=== PATIENT | male | born 1945 | race Caucasian/White ===

== ENCOUNTER 2022-09-29 06:09 | Day surgery (SDC) | payer MEDICARE ==
[2022-09-27 16:23] LABS: BASOPHILS % (AUTO) 0.3 % (0-1); EOSINOPHILS # (AUTO) 0.1 X10'3 (0-0.9); EOSINOPHILS % (AUTO) 2.1 % (0-6); LYMPHOCYTES # (AUTO) 1.5 X10'3 (1.1-4.8); LYMPHOCYTES % (AUTO) 22.7 % (21-51); MEAN CORPUSCULAR HEMOGLOBIN 32.3 PG (27.0-31.0); MEAN CORPUSCULAR HGB CONC 34.1 g/dL (33.0-36.5); MEAN CORPUSCULAR VOLUME 94.6 FL (78-98); MEAN PLATELET VOLUME 9.6 FL (7.4-10.4); MONOCYTES # (AUTO) 0.6 X10'3 (0-0.9); MONOCYTES % (AUTO) 9.1 % (2-12); NEUTROPHILS # (AUTO) 4.4 X10'3 (1.8-7.7); NEUTROPHILS % (AUTO) 65.8 % (42-75); PRE OP HEMOGLOBIN 13.3 g/dL (14.0-17.9); PRE OP PLATELET COUNT 143 X10'3 (140-440); RED BLOOD COUNT 4.13 X10'6 (4.70-6.10); RED CELL DISTRIBUTION WIDTH 13.1 % (11.5-14.5)
[2022-09-27 16:50] LABS: ALBUMIN 3.8 G/DL (3.4-5.0); ALBUMIN/GLOBULIN RATIO 1.3 (1.1-1.5); ALKALINE PHOSPHATASE 88 IU/L (46-116); BLOOD UREA NITROGEN 10 MG/DL (7-18); BUN/CREATININE RATIO 14.3 (5.4-32.0); CHLORIDE 105 MMOL/L (99-107); PRE OP ALT 37 U/L (30-65); PRE OP ANION GAP 8 (8-16); PRE OP AST 25 U/L (10-37); PRE OP BILIRUB, TOTAL 0.5 MG/DL (0.0-1.0); PRE OP GLUCOSE 100 MG/DL (70-104); PRE OP SODIUM 140 MMOL/L (135-145); TOTAL CARBON DIOXIDE 27.5 MMOL/L (24-32); TOTAL PROTEIN 6.7 G/DL (6.4-8.2); eGFR > 90 ML/MIN
[~2022-09-29] VITALS: Ht 170.2 cm; Wt 80.7 kg
[2022-09-29] VITALS (11 sets, daily range): BP systolic 124–161; BP diastolic 58–97
[~2022-09-29 06:09] MED LIST: ASCO-134 PO; GLUCOS; PRESERVISION; SAW PALMETTO; VITAMIN D; ZINC; [UNRECOGNIZED DRUG - OTHER]; cefazolin 2gm/D5W 100mL 100 ML IV ONE; famotidine 20mg tablet PO ONE; ringers solution, lacted 1,000 ML IV SCH
[2022-09-29] MEDS ORDERED: LIDOcaine 1% 30ml preserv. free vial ONE (06:43)
[2022-09-29] MEDS ORDERED: BUPIVAcaine/PF 2.5 mg/ml (0.25%) 30ml vial ONE (06:43)
[2022-09-29] MEDS ORDERED: sevoflurane 250ml liquid IH ONE (08:02)
[2022-09-29] MEDS ORDERED: midazolam 1 mg/ML 2ml injection ONE (08:11)
[2022-09-29] MEDS ORDERED: ondansetron/PF 4mg/2ml inj ONE (08:25)
[2022-09-29] MEDS ORDERED: rocuronium 10mg/ml inj IV ONE (08:25)
[2022-09-29] MEDS ORDERED: fentaNYL /PF 50mcg/ml 5ml ampule ONE (08:25)
[2022-09-29] MEDS ORDERED: LIDOcaine 2% (20mg/ml) 5ml vial ONE (08:25)
[2022-09-29] MEDS ORDERED: propofol inj 20 ML IV ONE (08:25)
[2022-09-29] MEDS ORDERED: dexamethasone sod phosphate 4mg/ml inj. ONE (08:25)
[2022-09-29] MEDS ORDERED: ketorolac tromethamine 15mg/ml inj. IV ONE (08:45)
[2022-09-29] MEDS ORDERED: meperidine/PF 25mg/ml syringe IV PRN ×3 (08:45)
[2022-09-29] MEDS ORDERED: proCHLORperazine 10 MG/2 ml inj IV PRN (08:45)
[2022-09-29] MEDS ORDERED: ondansetron/PF 4mg/2ml inj IV PRN (08:45)
[2022-09-29] MEDS ORDERED: acetaminophen 1,000mg/100ml IV 100 ML IV PRN (08:45)
[2022-09-29] MEDS ORDERED: hydrALAZINE 20mg/ml inj. IV PRN (08:45)
[2022-09-29] MEDS ORDERED: morphine 2 MG/ML inj. syringe IV PRN (08:45)
[2022-09-29] MEDS ORDERED: morphine 4 MG/ML inj SYRINge IV PRN (08:45)
[2022-09-29] MEDS ORDERED: labetalol 20mg/4ml (5mg/ml) syringe IV PRN (08:45)
[2022-09-29] MEDS ORDERED: ringers solution, lacted 1,000 ML IV SCH (08:45)
[2022-09-29] MEDS ORDERED: ePHEDrine 50MG/ML INJ. ONE (08:53)
[2022-09-29] MEDS ORDERED: neostigmine methylsulfate 1 MG/ML 10ml vial ONE (09:14)
[2022-09-29] MEDS ORDERED: glycopyrrolate 0.2mg/ml inj ONE (09:14)
--- NOTE | 2022-09-29 09:31 | NUR ---
Received from OR via [facility] , accompanied by Anesthesiologist and report given by RASHARD Anesthesiologist. PATIENT WAKING UP, DENIES PAIN, V/S WNL, PIV 20G RIGHT FOREARM, BANDAID LAPS SITES CLOSED C/D/I TO ABDOMEN. Addendum: 09/29/22 at 0944 by Higinio Schultz RN Amended: Links added.
[2022-09-29] MEDS ORDERED: HYDROcodone/acetaminophen 5mg/325mg tablet PO PRN (09:50)
--- NOTE | 2022-09-29 11:19 | NUR ---
ALL DISCHARGE CRITERIA HAS BEEN MET. VSS, PAIN AT A TOLERABLE LEVEL, VOIDING AND ABLE TO SAFELY AMBULATE AND TRANSFER SELF. IV TAKEN OUT WITHOUT ANY COMPLICATIONS. ALL DISCHARGE INSTRUCTIONS COVERED WITH PATIENT AND ALL QUESTIONS ANSWERED. PATIENT TAKEN OUT VIA WHEELCHAIR WITH ALL BELONGINGS TO PERSONAL VEHICLE WHERE FAMILY DROVE PATIENT HOME. Addendum: 09/29/22 at 1134 by Higinio Schultz RN Amended: Links added.
== END 2022-09-29 11:21 | disposition home or self-care (01) ==
LOC: PAS 06:09
PROVIDERS: ATTEND Surgery
DX: K40.30 Unilateral inguinal hernia, with obstruction, without gangrene, not specified as recurrent (principal); Z98.49 Cataract extraction status, unspecified eye; Z98.890 Other specified postprocedural states; Z87.442 Personal history of urinary calculi; Z72.89 Other problems related to lifestyle; Z79.899 Other long term (current) drug therapy
CPT/HCPCS: 36415; 49650; 80053; 82948; 85025; 93005; C1781; J1100; J1885; J2250; J2405; J2704; J2710; J3010; J3490; J7030; J7120; Z7506; Z7508; Z7512; A4215; A4618; J0690